=== PATIENT | male | born 1970 | race African-American/Black ===

== ENCOUNTER 2018-01-06 01:44 | Emergency (ER) | payer MEDICAID ==
[~2018-01-06] VITALS: Ht 175.3 cm; Wt 115.0 kg
[2018-01-06 04:00] LABS: CLARITY URINE CLEAR (CLEAR); COLOR URINE YELLOW (YELLOW); KETONES URINE TRACE (NEGATIVE); LEUKOCYTE ESTERASE URINE NEGATIVE (NEGATIVE); NITRITE URINE NEGATIVE (NEGATIVE); OCCULT BLOOD URINE NEGATIVE (NEGATIVE); PROTEIN URINE NEGATIVE (NEGATIVE); SPECIFIC GRAVITY URINE 1.022 (1.005-1.030); UROBILINOGEN URINE 0.2 E.U./dL (0.2-1.0)
[2018-01-06] MEDS ORDERED: HYDROCODONE/ACETAMINOPHEN 5/325MG TABLET PO ONE (05:00)
[2018-01-06 05:36] LABS: BASOPHILS % 0.6 % (0.0-2.0); EOSINOPHILS % 2.8 % (0.0-5.0); HEMATOCRIT. 39.5 % (42.0-52.0); HEMOGLOBIN. 12.6 g/dL (14.0-18.0); LYMPHOCYTES % 42.1 % (20.0-50.0); MEAN CORPUSCULAR VOLUME 72.2 fL (80.0-94.0); MEAN PLATELET VOLUME 8.6 fl (7.4-10.4); MONOCYTES % 10.6 % (2.0-8.0); NEUTROPHILS % 43.9 % (40.0-76.0); PLATELET 164 x1000/uL (130-400); RED BLOOD CELL COUNT 5.48 mill/uL (4.7-6.1); RED CELL DISTRIBUTION WIDTH 16.9 % (11.6-14.6)
[2018-01-06 05:43] LABS: CHLORIDE 108 mEq/L (98-107)
[2018-01-06 06:44] VITALS: BP 149/78
== END 2018-01-06 06:44 | disposition home or self-care (01) ==
LOC: ER 02:03
DX: M54.2 Cervicalgia (principal); M54.5 Low back pain; I10 Essential (primary) hypertension
CPT/HCPCS: 36415; 71045; 73030; 80053; 81003; 83880; 84484; 85025; 93005; 99285

== ENCOUNTER 2018-01-17 04:02 | Emergency (ER) | payer MEDICAID | END 2018-01-17 04:12 | disposition left against medical advice (07) | LOC: ER 04:02 | DX: Z04.3 Encounter for examination and observation following other accident (principal) | CPT/HCPCS: 99281 ==

== ENCOUNTER 2018-01-27 16:57 | Emergency (ER) | payer MEDICAID ==
[~2018-01-27] VITALS: Ht 175.3 cm; Wt 100.0 kg
[2018-01-27 16:59] VITALS: BP 114/74
== END 2018-01-27 17:29 | disposition left against medical advice (07) ==
LOC: ER 16:57
DX: Z53.21 Procedure and treatment not carried out due to patient leaving prior to being seen by health care provider (principal)
CPT/HCPCS: 93005